=== PATIENT | male | born 1975 | race Caucasian/White ===

== ENCOUNTER 2017-07-17 21:20 | Observation (INO) | payer SELFPAY ==
[~2017-07-17] VITALS: Ht 188 cm; Wt 66.4 kg
[2017-07-17] MEDS: SODIUM CHLOR 0.9% 1000 ML INJ 1,000 ML IV SCH (18:33)
[2017-07-17] MEDS: SODIUM CHLORIDE 0.9% FLUSH 5 ML FLUSH IV FLUSH SCH (21:00)
[~2017-07-17 21:20] MED LIST: ACETAMINOPHEN 325 MG TAB PO PRN; ALPR0.5T3 PO; ASPI81TA23 PO; BISACODYL 10 MG SUPP RECTAL PRN; DEXTROSE 50% IN WATER 50 ML VIAL(D50) IV PUSH PRN; GABA600T PO; GADODIAMIDE PF 287 MG/ML 5 ML VIAL (for RAD MRI) IV PUSH ONE; GLUCAGON 1 MG/ML VIAL OTHER PRN; INSULIN ASPART SUPPLEMENTAL SCALE SQ SCH; LACTULOSE SYRUP 20 GM/30 ML CUP PO PRN; MAGNESIUM HYDROXIDE SUSP 30 ML CUP PO PRN; MORPHINE SULFATE 4 MG/ML INJ IV PUSH PRN; NALOXONE HCL 0.4 MG/ML AMP IV PUSH PRN; NICOTINE 14 MG/24 HR PATCH T-DERMAL ONE; NORC10TA2 PO; OMEP20CA2 PO; ONDANSETRON HCL 4 MG/2 ML VIAL IVP PRN; OXYC15TA PO; PRAV20 PO; PROCHLORPERAZINE 25 MG SUPP RECTAL PRN; PROT40TA PO; SENNOSIDES 8.6 MG TAB PO PRN; SODIUM CHLORIDE 0.9% FLUSH 10 ML FLUSH IV FLUSH PRN; SODIUM CHLORIDE 0.9% FLUSH 10 ML FLUSH IV FLUSH SCH; SODIUM CHLORIDE 0.9% FLUSH 5 ML FLUSH IV FLUSH PRN; SOMA350T PO; cloNIDine HCL 0.1 MG TAB PO PRN; oxyCODONE/ACETAMINOPHEN 10 MG/325 MG TAB PO PRN; oxyCODONE/ACETAMINOPHEN 5 MG/325 MG TAB PO PRN
[2017-07-17 21:31] VITALS: BP 113/69; PULSE 61; RESP 17; TEMP 97.8; O2SAT 98
[2017-07-17] MEDS ORDERED: NON-FORMULARY DRUG (Oxycodone 15 MG) PO PRN (22:00)
--- NOTE | 2017-07-17 22:07 | RADRPT ---
EXAM DATE/TIME: 07/17/2017 21:30 [place] COMPARISON: No previous studies available for comparison. INDICATIONS : Transient ischemic attack. MEDICAL HISTORY : Hypercholesterolemia. Herniated disc. Syncope. Arthritis. Anxiety. SURGICAL HISTORY : Angioplasty. Pacemaker. Left knee surgery. ENCOUNTER: Initial ACUITY: 1 day PAIN SCORE: 0/10 LOCATION: Bilateral neck PEAK SYSTOLIC VELOCITIES (cm/sec): ICA/CCA RATIO: Right: 1.0 Left: 0.9 ICA: Right: 87.5 Left: 83.8 CCA: Right: 89.7 Left: 94.6 ECA: Right: 67.7 Left: 86.2 VERTEBRAL: Right: 33.8 antegrade Left: 40.7 antegrade Elevated flow velocities and ICA/CCA ratios have been found to correlate with increased degrees of vessel stenosis, calculated as percentage of diameter relative to a normal segment of distal ICA/CCA FINDINGS: RIGHT CAROTID: No significant stenosis is visualized. The waveforms are within normal limits. LEFT CAROTID: No significant stenosis is visualized. The waveforms are within normal limits. VERTEBRAL ARTERIES: Antegrade flow is seen in both vertebral arteries. MISCELLANEOUS: None. CONCLUSION: 1. No atherosclerotic disease or stenosis is present within either internal carotid artery. 2. There is antegrade flow in both vertebral arteries. tSar Agrawal MD on July 17, 2017 at 22:05 Board Certified Radiologist. This report was verified electronically.
[2017-07-17] MEDS: ALPRAZolam 0.5 MG TAB PO SCH (22:50)
[2017-07-17] MEDS: ENOXAPARIN SODIUM 40 MG/0.4 ML SYRINGE SQ SCH (22:50)
[2017-07-17] MEDS: PANTOPRAZOLE SOD 20 MG DELAYED RELEASE TAB PO SCH (22:50)
[2017-07-17] MEDS: ATORVASTATIN 10 MG TAB PO SCH (22:50)
[2017-07-17] MEDS: DOCUSATE SODIUM 50 MG/SENNA 8.6 MG TAB PO SCH (22:50)
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
[2017-07-17 23:14] VITALS: BP 115/78; PULSE 67; RESP 17; TEMP 98; O2SAT 98
[2017-07-18] VITALS (9 sets, daily range): BP systolic 99–119; BP diastolic 56–83; PULSE 61–76; RESP 16–18; TEMP 97.7–98.7; O2SAT 95–99
[2017-07-18 04:39] LABS: CREATINE KINASE 68 U/L (39-308)
[2017-07-18] MEDS: SODIUM CHLOR 0.9% 1000 ML INJ 1,000 ML IV SCH ×3 (06:19→19:44)
[2017-07-18 07:32] LABS: AUTOMATED NEUTROPHIL # 0.8 TH/MM3 (1.8-7.7); BASOPHIL % 0.6 % (0.0-2.0); EOSINOPHIL # 0.2 TH/MM3 (0-0.4); EOSINOPHIL % 4.5 % (0.0-4.0); HEMATOCRIT 40.8 % (39.0-51.0); LYMPH % 66.1 % (9.0-44.0); LYMPHOCYTE # 2.3 TH/MM3 (1.0-4.8); MEAN CELL VOLUME 87.5 FL (80.0-100.0); MEAN CORPUSCULAR HEMOGLOBIN 29.4 PG (27.0-34.0); MEAN CORPUSCULAR HGB CONC 33.6 % (32.0-36.0); MONO % 6.7 % (0.0-8.0); NEUT % 22.1 % (16.0-70.0); PLATELET COUNT 222 TH/MM3 (150-450); RED BLOOD COUNT 4.66 MIL/MM3 (4.50-5.90); WHITE BLOOD COUNT 3.5 TH/MM3 (4.0-11.0)
[2017-07-18 07:35] LABS: HEMO FLAGS AUTO DIFF
[2017-07-18] MEDS: INSULIN ASPART SUPPLEMENTAL SCALE SQ SCH ×4 (08:00→20:12)
[2017-07-18 08:03] LABS: ANION GAP 6 MEQ/L (5-15); AST (GOT) 18 U/L (15-37); BICARBONATE 28.1 MEQ/L (21.0-32.0); BLOOD UREA NITROGEN 14 MG/DL (7-18); CHLORIDE 104 MEQ/L (98-107); GLOMERULAR FILTRATION RATE 120 ML/MIN (>89); MAGNESIUM 2.1 MG/DL (1.5-2.5); POTASSIUM 3.4 MEQ/L (3.5-5.1); SODIUM (NA) 138 MEQ/L (136-145)
[2017-07-18 08:04] LABS: ALT (GPT) 29 U/L (12-78)
[2017-07-18 08:12] LABS: ALKALINE PHOSPHATASE 77 U/L (45-117); FREE T4 0.92 NG/DL (0.76-1.46); HDL CHOLESTEROL 60.7 MG/DL (40.0-60.0); LDL CHOLESTEROL 76 MG/DL (0-99); TOTAL BILIRUBIN ADULT 0.5 MG/DL (0.2-1.0)
[2017-07-18 08:18] LABS: CREATINE KINASE 68 U/L (39-308)
[2017-07-18] MEDS ORDERED: POTASSIUM CHLORIDE 10 MEQ CONTROLLED RELEASE TAB PO ONE (08:30)
[2017-07-18] MEDS ORDERED: ASPIRIN EC 81 MG TABEC PO SCH (09:00)
[2017-07-18] MEDS: SODIUM CHLORIDE 0.9% FLUSH 5 ML FLUSH IV FLUSH SCH ×2 (09:00→20:13)
[2017-07-18] MEDS: PANTOPRAZOLE SOD 20 MG DELAYED RELEASE TAB PO SCH ×2 (10:06→22:04)
[2017-07-18] MEDS: ASPIRIN 325 MG TAB PO SCH (10:06)
[2017-07-18] MEDS: DOCUSATE SODIUM 50 MG/SENNA 8.6 MG TAB PO SCH ×2 (10:07→22:04)
[2017-07-18] MEDS: ALPRAZolam 0.5 MG TAB PO SCH ×2 (10:07→22:04)
[2017-07-18] MEDS ORDERED: GABA800T PO (10:56)
[2017-07-18] MEDS ORDERED: PRAV40TA2 PO (10:56)
[2017-07-18 11:59] LABS: BANDS 1 % (0-6); EOSINOPHILS 3 % (0-4); NEUTROPHIL # MANUAL DIFF 1.1 TH/MM3 (1.8-7.7); PLATELET ESTIMATE SMEAR NORMAL (NORMAL); PLATELET MORPHOLOGY NORMAL (NORMAL); POLYS (SEG NEUTROPHILS) 30 % (16-70); WBC DIFF SAMPLE 100
[2017-07-18 12:00] LABS: SCAN/DIFF FINAL DIFF MANUAL
--- NOTE | 2017-07-18 14:00 | HHI.PR ---
Subjective Remarks F/u TIA. Improving sxs. Per daughter still slurred speech. Patient has history of intermittent weakness of the right wrist history of neck bone spurs. Discussed with RN Objective Vitals Vital Signs Date Time Temp Pulse Resp B/P (MAP) Pulse Ox O2 Delivery O2 Flow Rate FiO2 07/18/17 11:51 98.5 70 16 113/78 (90) 97 07/18/17 08:01 62 07/18/17 07:01 97.7 66 16 114/83 (93) 99 07/18/17 02:45 97.7 62 16 99/60 (73) 98 07/17/17 23:21 18 07/17/17 23:14 98.0 67 17 115/78 (90) 98 07/17/17 21:31 97.8 61 17 113/69 (84) 98 I/O 07/17/17 07/17/17 07/17/17 07/18/17 07/18/17 07/18/17 07:00 15:00 23:00 07:00 15:00 23:00 Intake Total 300 ml 2000 ml Balance 300 ml 2000 ml Intake Oral 300 ml IV Total 2000 ml Result Diagram: 07/18/17 0548 07/18/17 0548 Imaging Last Impressions Carotid Artery Ultrasound 07/17/17 0000 Signed Impressions: Service Date/Time: Monday, July 17, 2017 21:30 - CONCLUSION: 1. No atherosclerotic disease or stenosis is present within either internal carotid artery. 2. There is antegrade flow in both vertebral arteries. Stra Agrawal MD Objective Remarks GENERAL: male in no distress SKIN: No rashes, ecchymoses or lesions. Cool and dry. NECK: Trachea midline. No JVD or lymphadenopathy. Supple, nontender, no meningeal signs. CARDIOVASCULAR: Regular rate and rhythm without murmurs, gallops, or rubs. RESPIRATORY: Clear to auscultation. Breath sounds equal bilaterally. No wheezes , rales, or rhonchi. GASTROINTESTINAL: Abdomen soft, non-tender, nondistended. No hepato-splenomegaly , or palpable masses. No guarding. MUSCULOSKELETAL: Extremities without clubbing, cyanosis, or edema. No joint tenderness, effusion, or edema noted. No calf tenderness. Negative Homans sign bilaterally. NEUROLOGICAL: Awake and alert. Cranial nerves II through XII intact. 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 5/5 strength in all extremities. A/P Problem List: (1) TIA (transient ischemic attack) ICD Code: G45.9 - Transient cerebral ischemic attack, unspecified Status: Acute Assessment and Plan 42-year-old male with pacemaker implantation for symptomatic bradycardia presents with right-sided facial droop and right upper extremity weakness. 1. TIA versus CVA. Stable continue aspirin Neurology consulted, appreciate assistance LDL 72, A1c pending Echo, MRI and MRA pending. Carotid ultrasound negative MRA/MRI held secondary to pacemaker 2. Symptomatic bradycardia 3. Right apical density. Patient denies respiratory symptoms. Repeat chest x- ray in 6 weeks. Incentive spirometer albuterol nebulizations FEN Heart healthy diet Electrolytes: replete prn Susan Jack MD Jul 17, 2017 23:01 Souleymane Burns MD Jul 18, 2017 14:00
[2017-07-18 15:33] LABS: FREE T3 3.2 PG/ML (2.18-3.98); FREE T4 0.96 NG/DL (0.76-1.46)
[2017-07-18 16:23] LABS: HEMOGLOBIN A1a 1.3 %; HEMOGLOBIN A1b 1.8 %; HEMOGLOBIN Ao 85.1 %; HEMOGLOBIN LA1C 1.9 %; HEMOGLOBIN P3 3.6 %
--- NOTE | 2017-07-18 19:26 | EKG ---
Date Performed: 07/17/2017 Time Performed: 23:11:14 PTAGE: 42 years EKG: ELECTRONIC ATRIAL PACEMAKER ABNORMAL RHYTHM ECG Since PREVIOUS TRACING , no significant change noted PREVIOUS TRACIN06/30/2016 02.57 DOCTOR: Delia Pulliam Interpretating Date/Time 07/18/2017 19:25:24
[2017-07-18] MEDS: RESP: ALBUTEROL 2.5 MG/IPRATROPIUM 0.5 MG NEB (SCH) NEB (20:00)
[2017-07-18] MEDS ORDERED: GABAPENTIN 400 MG CAP PO ONE (22:00)
[2017-07-18] MEDS: ENOXAPARIN SODIUM 40 MG/0.4 ML SYRINGE SQ SCH (22:04)
[2017-07-18] MEDS: ATORVASTATIN 10 MG TAB PO SCH (22:05)
[2017-07-19] VITALS (10 sets, daily range): BP systolic 99–115; BP diastolic 57–77; PULSE 60–78; RESP 16–19; TEMP 97.6–98.5; O2SAT 94–100
--- NOTE | 2017-07-19 06:35 | MB ---
cc: HEATHER MORA DATE OF CONSULTATION 07/18/2017 REASON FOR CONSULTATION "TIA/myasthenia gravis". HISTORY OF PRESENT ILLNESS Mr. Alegre is a 42-year-old male with his daughter at the bedside. They presented to the [facility] Emergency Department because of right-sided facial droop, slurred speech and right-sided hand weakness. The daughter describes clearly the right-sided droopiness of the right side of the face, hand was very weak and he was disoriented with slurred speech and he states that he could not see from his right eye; this lasted overnight. During the encounter this morning the patient and his daughter state that he is almost back to normal but the daughter still thinks that there is mild droopiness of the right eyelid. The patient has a past medical history of bradycardia status post pacemaker. He is left-handed. Pacemaker is on the right upper chest. The patient has been in [facility] in [place] for evaluation of a significant weight loss of 50-60 pounds over 2 months duration with severe vomiting and lack of appetite. The patient has family history of myasthenia gravis in his father. His daughter was diagnosed with neuroblastoma in the chest with right Martinez's syndrome due to surgical intersection and the patient's daughter was diagnosed with postganglionic dysautonomia and he was diagnosed with a "neck spur" in [place] that may be affecting him. In fact they told him it is affecting his right hand weakness. REVIEW OF SYSTEMS A 12-point review of systems is negative except for what is stated in the HPI. PAST MEDICAL HISTORY Multiple herniated disks in the back and the neck. Bradycardia with pacemaker implantation July 2016. PAST SURGICAL HISTORY 1. Left knee twice. 2. Pacemaker plantation replacement. MEDICATIONS 1. Alprazolam. 2. Soma. 3. Omeprazole. 4. Aspirin 81. 5. Oxycodone. ALLERGIES No known allergies. FAMILY HISTORY Father with myasthenia gravis. Daughter with postganglionic dysautonomia. Daughter with neuroblastoma. SOCIAL HISTORY Smokes one-pack per day for 20 years. Denies alcohol or illicit drugs. PHYSICAL EXAMINATION GENERAL: Awake. Good historian. Anxious. Not in acute distress with daughter at the bedside. HEENT: Atraumatic, normocephalic. Intact hearing and intact vision. NECK: Supple. No signs of meningeal irritation. CARDIOVASCULAR: Regular rate and rhythm. Pacemaker on the right upper chest. RESPIRATORY: Clear to auscultation. No wheezes. MUSCULOSKELETAL: No clubbing, cyanosis or edema. Moves all extremities equally. NEUROLOGIC: Awake, alert, oriented to time, person and place. No dysarthria. No dysphasia. Cranial nerves II-XII are grossly intact. No facial asymmetry. Intact facial sensation. Intact external ocular motility. No nystagmus. No diplopia. Upper extremities 5/5, bilateral, symmetrical, no abnormal movement. Normal tone. Lower extremities 5/5. No abnormal movement. Normal tone. Sensation is intact throughout, bilateral and symmetrical. Tsmrei-hu-pgit and heel-to- nava is intact. Plantars are bilaterally downgoing. PSYCHIATRY: Cooperative. Normal mood and behavior. DIAGNOSTIC TESTS LABORATORY DATA WBC 3.5, hemoglobin 13.7, platelet count 222. Sodium 138, potassium 3.4, anion gap 6, BUN 14, creatinine 0.72. A1c 5.8. Free T4 and TSH is low. IMAGING STUDIES - Head CT scan without contrast was reported as no evidence of acute intracranial abnormality. - Carotid ultrasound - No atherosclerotic disease in either internal carotid artery. Antegrade flow in both vertebral arteries. DIAGNOSTIC IMPRESSION -TIA versus ischemic stroke. - Bradycardia status post pacemaker . PLAN 1. Neuro checks q. 4 hours. 2. Aspirin 81 mg. 3. MRI brain without contrast. 4. MRI spine with and without contrast. 5. Statin 10 mg daily. 6. DVT prophylaxis. 7. GI prophylaxis. Thank you for the opportunity to participate in the care of your patient. MD TENZIN Venegas/REENA /9:28 PM /6:28 AM MIN
[2017-07-19] MEDS: RESP: ALBUTEROL 2.5 MG/IPRATROPIUM 0.5 MG NEB (SCH) NEB ×4 (07:24→22:44)
[2017-07-19] MEDS: INSULIN ASPART SUPPLEMENTAL SCALE SQ SCH ×4 (08:00→20:53)
[2017-07-19] MEDS: SODIUM CHLORIDE 0.9% FLUSH 5 ML FLUSH IV FLUSH SCH ×2 (08:00→21:00)
[2017-07-19] MEDS: ALPRAZolam 0.5 MG TAB PO SCH ×2 (08:02→20:44)
[2017-07-19] MEDS: ASPIRIN 325 MG TAB PO SCH (08:02)
[2017-07-19] MEDS: GABAPENTIN 400 MG CAP PO SCH ×3 (08:03→17:08)
[2017-07-19] MEDS: DOCUSATE SODIUM 50 MG/SENNA 8.6 MG TAB PO SCH ×2 (08:04→21:53)
[2017-07-19] MEDS: PANTOPRAZOLE SOD 20 MG DELAYED RELEASE TAB PO SCH ×2 (08:04→21:53)
--- NOTE | 2017-07-19 12:01 | ECHRPT ---
Indication: CVA/TIA CONCLUSIONS Normal left ventricular size. Wall thickness is normal. The left ventricular systolic function is moderately reduced with an estimated ejection fraction in the range of 35-40%. The estimated pulmonary arterial pressure is 31 mmHg. BP: / HR: Rhythm: MEASUREMENTS (Male / Female) Normal Values Technical Quality:Fair 2D ECHO LV Diastolic Diameter PLAX 4.8 cm 4.2 - 5.9 / 3.9 - 5.3 cm LV Systolic Diameter PLAX 4.0 cm IVS Diastolic Thickness 1.0 cm 0.6 - 1.0 / 0.6 - 0.9 cm LVPW Diastolic Thickness 0.6 cm 0.6 - 1.0 / 0.6 - 0.9 cm LV Relative Wall Thickness 0.3 RV Internal Dim ED PLAX 2.8 cm LA Systolic Diameter LX 3.6 cm 3.0 - 4.0 / 2.7 - 3.8 cm DOPPLER Mitral E Point Velocity 80.0 cm/s Mitral A Point Velocity 46.9 cm/s Mitral E to A Ratio 1.7 TR Peak Velocity 231.0 cm/s TR Peak Gradient 21.3 mmHg Right Atrial Pressure 10.0 mmHg Pulmonary Artery Systolic Pressu 31.3 mmHg Right Ventricular Systolic Press 31.3 mmHg FINDINGS LEFT VENTRICLE Normal left ventricular size. Wall thickness is normal. The left ventricular systolic function is moderately reduced with an estimated ejection fraction in the range of 35-40%. RIGHT VENTRICLE Normal right ventricular size and systolic function. A pacemaker wire is noted. LEFT ATRIUM The left atrial size is normal. RIGHT ATRIUM The right atrial size is normal. ATRIAL SEPTUM Normal atrial septal thickness without atrial level shunting by limited color doppler interrogation. AORTA The aortic root and proximal ascending aorta are normal in size on limited imaging. MITRAL VALVE Structurally normal mitral valve. No mitral valve stenosis or regurgitation. AORTIC VALVE Trileaflet aortic valve. No aortic valve stenosis or regurgitation. TRICUSPID VALVE The estimated pulmonary arterial pressure is 31 mmHg. PULMONARY VALVE No pulmonary valve regurgitation or stenosis. VESSELS The inferior vena cava is normal in size. PERICARDIUM No pericardial effusion. Wendi Portillo MD, FACC (Electronically Signed) Final Date:19 July 2017 12:00
[2017-07-19 13:00] LABS: AUTOMATED NEUTROPHIL # 1.5 TH/MM3 (1.8-7.7); BASOPHIL % 0.5 % (0.0-2.0); EOSINOPHIL # 0.1 TH/MM3 (0-0.4); EOSINOPHIL % 2.4 % (0.0-4.0); HEMATOCRIT 35.4 % (39.0-51.0); HEMO FLAGS DIFF FINAL; LYMPH % 54.8 % (9.0-44.0); LYMPHOCYTE # 2.2 TH/MM3 (1.0-4.8); MEAN CELL VOLUME 88.2 FL (80.0-100.0); MEAN CORPUSCULAR HEMOGLOBIN 29.4 PG (27.0-34.0); MEAN CORPUSCULAR HGB CONC 33.4 % (32.0-36.0); MONO % 4.6 % (0.0-8.0); NEUT % 37.7 % (16.0-70.0); PLATELET COUNT 214 TH/MM3 (150-450); RED BLOOD COUNT 4.01 MIL/MM3 (4.50-5.90)
[2017-07-19] MEDS ORDERED: PRAV40TA2 PO (13:09)
--- NOTE | 2017-07-19 13:21 | HHI.DCPOC ---
Discharge Care Plan Diagnosis: (1) TIA (transient ischemic attack) (2) Bradycardia (3) Tobacco abuse (4) Apical lung scarring (5) Systolic CHF Goals to Promote Your Health * To prevent worsening of your condition and complications * To maintain your health at the optimal level Directions to Meet Your Goals Please quit smoking Finding of right apical density on chest xray, please repeat CXR in 6 weeks. No driving until follow up with PCP Take your medications as prescribed Follow your dietary instruction Follow activity as directed Keep your appointments as scheduled Take your immunizations and boosters as scheduled If your symptoms worsen call your PCP, if no PCP go to Urgent Care Center or Emergency Room Smoking is Dangerous to Your Health. Avoid second hand smoke Call the 24-hour hour crisis hotline for domestic abuse at Akiko Ramesh Jul 19, 2017 13:21
[2017-07-19 13:26] LABS: BICARBONATE 24.6 MEQ/L (21.0-32.0); POTASSIUM 3.6 MEQ/L (3.5-5.1)
[2017-07-19] MEDS ORDERED: LISI-519 PO (13:54)
[2017-07-19] MEDS ORDERED: PILL SPLITTER OTHER PRN (14:00)
--- NOTE | 2017-07-19 14:01 | HHI.PR ---
Subjective Remarks Follow-up TIA. Improved numbness and weakness. Awaiting MRI pending cardiology clearance patient has a pacemaker. Discussed with RN Objective Vitals Vital Signs Date Time Temp Pulse Resp B/P (MAP) Pulse Ox O2 Delivery O2 Flow Rate FiO2 07/19/17 12:23 98.5 62 18 102/57 (72) 99 07/19/17 07:27 94 21 07/19/17 07:04 98.0 60 16 99/69 (79) 98 07/19/17 06:23 21 07/19/17 06:12 62 07/19/17 03:38 97.6 60 19 107/61 (76) 97 07/18/17 23:33 97.9 65 18 111/56 (74) 98 07/18/17 21:14 98.7 76 18 117/64 (81) 95 07/18/17 15:31 98.3 61 16 119/81 (94) 99 07/18/17 15:30 71 I/O 07/18/17 07/18/17 07/18/17 07/19/17 07/19/17 07/19/17 07:00 15:00 23:00 07:00 15:00 23:00 Intake Total 2000 ml 1000 ml Balance 2000 ml 1000 ml IV Total 2000 ml 1000 ml # Voids 6 # Bowel Movements 1 Result Diagram: 07/19/17 1205 07/19/17 1205 Imaging Last Impressions Carotid Artery Ultrasound 07/17/17 0000 Signed Impressions: Service Date/Time: Monday, July 17, 2017 21:30 - CONCLUSION: 1. No atherosclerotic disease or stenosis is present within either internal carotid artery. 2. There is antegrade flow in both vertebral arteries. Star Agrawal MD Objective Remarks GENERAL: male in no distress SKIN: No rashes, ecchymoses or lesions. Cool and dry. NECK: Trachea midline. No JVD or lymphadenopathy. Supple, nontender, no meningeal signs. CARDIOVASCULAR: Regular rate and rhythm without murmurs, gallops, or rubs. RESPIRATORY: Clear to auscultation. Breath sounds equal bilaterally. No wheezes , rales, or rhonchi. GASTROINTESTINAL: Abdomen soft, non-tender, nondistended. No hepato-splenomegaly , or palpable masses. No guarding. MUSCULOSKELETAL: Extremities without clubbing, cyanosis, or edema. No joint tenderness, effusion, or edema noted. No calf tenderness. Negative Homans sign bilaterally. NEUROLOGICAL: Awake and alert. Cranial nerves II through XII intact.. Motor grossly within normal limits Procedures None A/P Problem List: (1) TIA (transient ischemic attack) ICD Code: G45.9 - Transient cerebral ischemic attack, unspecified Status: Acute Assessment and Plan 42-year-old male with pacemaker implantation for symptomatic bradycardia presents with right-sided facial droop and right upper extremity weakness. 1. TIA versus CVA. Stable with improved symptoms continue aspirin Neurology consulted, appreciate assistance LDL 72, A1c 5.3 MRI and MRA pending awaiting cardiology clearance patient has a pacemaker. Carotid ultrasound negative 2. Symptomatic bradycardia was most pacemaker 3. Cardiomyopathy. EF of 35%. Stress test negative for ischemia and June 2016. Start lisinopril. Will consider beta mesha outpatient if BP stable 4. History of weight loss. Patient to follow-up with PCP. Status post EGD and colonoscopy results not known to the patient. Patient with decreased TSH but not suppressed with normal free T3 and free T4. Possible sick euthyroid. Repeat TSH in 6 weeks 5. Right apical density. Patient denies respiratory symptoms. Repeat chest x- ray in 6 weeks. Incentive spirometer albuterol nebulizations FEN Heart healthy diet Electrolytes: replete prn Lovenox Discharge Planning Discharge patient to home Condition on discharge: Improved Regular Diet as tolerated Ad Akila activity no driving Rx written: Aspirin and lisinopril Follow-up with primary care physician in one week Souleymane Burns MD Jul 19, 2017 14:01
[2017-07-19] MEDS ORDERED: ASPI-516 CHEW (14:40)
[2017-07-19] MEDS ORDERED: hydrOXYzine PAMOATE 25 MG CAP PO PRN (15:30)
[2017-07-19] MEDS: LISINOPRIL 5 MG TAB PO SCH (15:47)
[2017-07-19] MEDS: SODIUM CHLOR 0.9% 1000 ML INJ 1,000 ML IV SCH ×2 (16:15→20:44)
--- NOTE | 2017-07-19 17:49 | MB ---
cc: MARIA A RAMIREZ DATE OF CONSULTATION: 07/19/2017 REASON FOR CONSULTATION: Clearance for MRI; history of pacemaker implant. HISTORY OF PRESENT ILLNESS The patient is a 42-year-old white male with a history of pacemaker implant July 2016 in [place], [place], for symptomatic bradycardia who presented to the hospital with neurological changes including right visual disturbances, right facial droop and some slurred speech. Most of these deficits have since resolved. He is to undergo MRI for further workup. The patient denies any recent chest pains although he states in the past he rarely has episodes of substernal chest "pressure" without associated shortness of breath, nausea or diaphoresis. Sometimes the chest discomforts last in a constant fashion for several hours. He reports a nuclear stress test sometime last year which was negative for ischemia. The patient also experiences mild dyspnea on exertion without change. He denies syncope, near-syncope, palpitations, pedal edema, paroxysmal nocturnal dyspnea. PAST MEDICAL HISTORY: Pacemaker implant ([employer]tronic) July 2016 for symptomatic bradycardia. CARDIAC MEDICATIONS AT HOME: Aspirin 81 milligrams qd. ALLERGIES: NO KNOWN DRUG ALLERGIES. FAMILY HISTORY: The patient's father has myasthenia gravis. There is no family history of early myocardial infarction. SOCIAL HISTORY: The patient smokes about a pack of cigarettes per day. He denies drug or alcohol abuse. REVIEW OF SYSTEMS: As in the history of present illness, otherwise negative or noncontributory. He also denies abdominal pain, melena, dyspepsia, bright red blood per rectum, headache. PHYSICAL EXAMINATION: On physical examination his blood pressure is 115/77 with a pulse of 63, respirations 16. GENERAL: He is a well-developed, well-nourished white male in no acute distress. HEENT examination: Jugular venous pressure is normal. Carotid pulses are 2+ bilaterally and without bruits. CHEST: Examination of the chest reveals clear lung toth. CARDIAC: He has a regular rhythm and rate without S3-S4 or murmur. ABDOMEN: On abdominal examination he has a soft, nontender abdomen. Bowel sounds are present. There is no definite hepatosplenomegaly. EXTREMITIES: Examination of extremities reveals no clubbing, cyanosis or edema. Peripheral pulses are normal throughout. EKG shows atrial paced rhythm, otherwise normal EKG. LABORATORY DATA: Laboratory data includes WBC 4.0, hemoglobin 11.8, platelets 214, potassium 3.6, BUN 12, creatinine 0.72, negative cardiac enzymes, total cholesterol 153, LDL 76, HDL 61, triglycerides 83. IMPRESSION Nondilated cardiomyopathy in this 42-year-old white male with a history of pacemaker implant last year currently admitted with acute neurological changes. I have been asked to see the patient for clearance for MRI of the head. The [employer]tr[employer] interrogation information has been reviewed. It does appear he has an MRI compatible device. He has also had the device for more than 8 weeks. Pacemaker function by the interrogation appears to be normal. His echocardiogram this admission has also been reviewed. I would agree that his left ventricular function is reduced with ejection fraction of approximately 40% with global hypokinesis. The etiology of the cardiomyopathy is not entirely clear. The patient reports a negative stress test last year. He denies drug or alcohol abuse. There is no definite history of hypertension. The hypokinesis on the echo appears to be global. RECOMMENDATIONS 1. He is cleared from a cardiac standpoint to undergo MRI of the head tonight. 2. In light of his reduced ejection fraction of 40% recommend a beta mesha and SARI inhibitor therapy with a repeat echo in about 3-4 months. 3. Continue daily aspirin. 4. Will follow up as needed. MD CLARISSE Daniels/KARLA /5:25 PM /5:38 PM MIN
--- NOTE | 2017-07-19 19:53 | RADRPT ---
EXAM DATE/TIME: 07/19/2017 18:26 [facility] COMPARISON: No previous studies available for comparison. INDICATIONS : CVA. MEDICAL HISTORY : Hypercholesterolemia. Arthritis. Cardiovascular disease. SURGICAL HISTORY : Pacemaker. Left knee. ENCOUNTER: Subsequent ACUITY: 3 day PAIN SCORE: 3/10 LOCATION: cranial TECHNIQUE: Multiplanar, multisequence MRI of the brain was performed without contrast. FINDINGS: CEREBRUM: The ventricles are normal for age. No evidence of midline shift, mass lesion, hemorrhage or acute in farction. No extraaxial fluid collections are seen. The pituitary gland and suprasellar cistern are normal in configuration. There is a small patent cavum septum pellucidum which is a normal pattern. WHITE MATTER: No significant signal abnormalities are seen in the white matter. POSTERIOR FOSSA: The cerebellum and brainstem are intact. The 4th ventricle is midline. The cerebellopontine angle is unremarkable. The cerebellar tonsils are normal in position. DIFFUSION IMAGING: No focal areas of restricted diffusion are seen. No evidence of acute infarction. EXTRACRANIAL: The visualized portions of the orbits are unremarkable. There is left frontal and ethmoid sinus disea se. CONCLUSION: 1. No intracranial abnormality seen. 2. Mild left frontal and ethmoid sinus disease. Star Ayoub MD on July 19, 2017 at 19:49 Board Certified Radiologist. This report was verified electronically.
--- NOTE | 2017-07-19 20:45 | RADRPT ---
EXAM DATE/TIME: 07/19/2017 18:26 [facility] COMPARISON: No previous studies available for comparison. INDICATIONS : Myelopathy. CONTRAST: 13 cc Omniscan (gadodiamide) IV MEDICAL HISTORY : Hypercholesterolemia. Arthritis. Cardiovascular disease. SURGICAL HISTORY : Pacemaker. Left knee. ENCOUNTER: Subsequent ACUITY: 3 day PAIN SCORE: 3/10 LOCATION: Neck TECHNIQUE: Multiplanar, multisequence MRI examination of the cervical spine was performed. FINDINGS: VERTEBRAE: Normal vertebral body height. Homogeneous marrow signal. ALIGNMENT: There is mild anterior subluxation of C3 on C4 in the order of 3 mm and posterior subl uxation of C4 on C5 in the order of 3 mm. CORD: Normal configuration and signal. POST FOSSA: The cerebellar tonsils are normal in position. POST-CONTRAST: No abnormal areas of enhancement are seen. C2-C3: The thecal sac has a normal configuration. There is no evidence of disc herniation or spinal canal stenosis. The neural foramina are patent bilaterally. C3-C4: Again noted is the anterior subluxation of C3 on C4. There is facet hypertrophy. The disc d emonstrates decreased height. The disc maintains its normal relationship with the superior aspect of C4 creating a bulge like configuration. There is moderate narrowing of the thecal sac. There is a jeff y thin layer of CSF seen around the cord. The neural foramina are grossly patent. C4-C5: Disc demonstrates height. There is mild bulging. There is mild to moderate narrowing of the t hecal sac. The neural foramina are normal. C5-C6: There is a minimal left lateral recess disc protrusion without significant stenosis. The neur al foramina are normal. C6-C7: There is mild diffuse disc bulge. This causes a mild impression on the thecal sac. There cont inues to be CSF around the cord. There is uncovertebral hypertrophy on the left causing left neural foraminal narrowing. The right neural foramina appears grossly patent. C7-T1: The thecal sac has a normal configuration. There is no evidence of disc herniation or spinal canal stenosis. The neural foramina are patent bilaterally. CONCLUSION: 1. 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 2. Anterior subluxation of C3 on C4 and posterior subluxation of C4 on C5 in the order of 3 mm. 3. Moderate narrowing of the thecal sac at the C3-C4 level. There are milder impressions on the thec al sac at the C4-C5 and C6-C7 levels. 4. Minimal left disc protrusion at the C5-C6 level without significant stenosis. Star Ayoub MD on July 19, 2017 at 19:51 Board Certified Radiologist. This report was verified electronically.
[2017-07-19] MEDS: ATORVASTATIN 10 MG TAB PO SCH (21:53)
[2017-07-19] MEDS: METOPROLOL TARTRATE 25 MG TAB PO SCH (21:53)
[2017-07-19] MEDS: ENOXAPARIN SODIUM 40 MG/0.4 ML SYRINGE SQ SCH (21:53)
[2017-07-20] VITALS (7 sets, daily range): BP systolic 99–108; BP diastolic 57–66; PULSE 60–79; RESP 16–19; TEMP 98–98.2; O2SAT 97–100
[2017-07-20] MEDS: SODIUM CHLOR 0.9% 1000 ML INJ 1,000 ML IV SCH (06:33)
[2017-07-20] MEDS: RESP: ALBUTEROL 2.5 MG/IPRATROPIUM 0.5 MG NEB (SCH) NEB ×2 (07:35→12:57)
[2017-07-20] MEDS: INSULIN ASPART SUPPLEMENTAL SCALE SQ SCH ×2 (07:49→11:18)
[2017-07-20] MEDS ORDERED: METO25TA3 PO (08:23)
[2017-07-20] MEDS: LISINOPRIL 5 MG TAB PO SCH (08:37)
[2017-07-20] MEDS: ALPRAZolam 0.5 MG TAB PO SCH (08:44)
[2017-07-20] MEDS: METOPROLOL TARTRATE 25 MG TAB PO SCH (08:44)
[2017-07-20] MEDS: DOCUSATE SODIUM 50 MG/SENNA 8.6 MG TAB PO SCH (08:44)
[2017-07-20] MEDS: PANTOPRAZOLE SOD 20 MG DELAYED RELEASE TAB PO SCH (08:44)
[2017-07-20] MEDS: GABAPENTIN 400 MG CAP PO SCH ×2 (08:44→12:51)
[2017-07-20] MEDS: ASPIRIN 325 MG TAB PO SCH (08:44)
[2017-07-20] MEDS: SODIUM CHLORIDE 0.9% FLUSH 5 ML FLUSH IV FLUSH SCH (08:48)
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
== END 2017-07-20 14:47 | disposition home or self-care (01) ==
LOC: NEDDLT 21:20 → NEPGCP 21:23
PROVIDERS: ADMIT Internal Medicine; ATTEND Internal Medicine
DX: R29.810 Facial weakness (principal); M21.339 Wrist drop, unspecified wrist; I42.9 Cardiomyopathy, unspecified; R00.1 Bradycardia, unspecified; M77.9 Enthesopathy, unspecified; F17.210 Nicotine dependence, cigarettes, uncomplicated; R47.81 Slurred speech; R63.4 Abnormal weight loss; R11.10 Vomiting, unspecified; Z95.0 Presence of cardiac pacemaker; D64.9 Anemia, unspecified; E87.6 Hypokalemia; R79.1 Abnormal coagulation profile; E83.51 Hypocalcemia; E87.8 Other disorders of electrolyte and fluid balance, not elsewhere classified; J98.4 Other disorders of lung; R09.89 Other specified symptoms and signs involving the circulatory and respiratory systems; R73.09 Other abnormal glucose; Z79.899 Other long term (current) drug therapy
CPT/HCPCS: 70450; 70551; 71010; 72156; 80048; 80053; 80061; 80307; 82550; 82948; 83036; 83735; 84100; 84439; 84443; 84481; 84484; 85007; 85025; 85027; 85610; 85730; 92610; 93005; 93306; 93880; 94150; 94640; 94664; 96360; 96361; 96372; 97161; 97166; 97530; 99285; A9579; G0378; G8987; G8988; G8989; G8996; G8997; G8998; J1650; J7030; Q0177; 99281

== ENCOUNTER 2018-02-15 17:48 | Observation (INO) | payer OTHER ==
[~2018-02-15] VITALS: Ht 188 cm; Wt 70.0 kg
[~2018-02-15 17:48] MED LIST changes: -ACETAMINOPHEN 325 MG TAB PO PRN; +ASPI-516 CHEW; -ASPI81TA23 PO; -BISACODYL 10 MG SUPP RECTAL PRN; -DEXTROSE 50% IN WATER 50 ML VIAL(D50) IV PUSH PRN; -GABA600T PO; +GABA800T PO; -GADODIAMIDE PF 287 MG/ML 5 ML VIAL (for RAD MRI) IV PUSH ONE; -GLUCAGON 1 MG/ML VIAL OTHER PRN; -INSULIN ASPART SUPPLEMENTAL SCALE SQ SCH; -LACTULOSE SYRUP 20 GM/30 ML CUP PO PRN; +LISI-519 PO; -MAGNESIUM HYDROXIDE SUSP 30 ML CUP PO PRN; +METO25TA3 PO; -MORPHINE SULFATE 4 MG/ML INJ IV PUSH PRN; -NALOXONE HCL 0.4 MG/ML AMP IV PUSH PRN; -NICOTINE 14 MG/24 HR PATCH T-DERMAL ONE; -NORC10TA2 PO; -ONDANSETRON HCL 4 MG/2 ML VIAL IVP PRN; -PRAV20 PO; +PRAV40TA2 PO; -PROCHLORPERAZINE 25 MG SUPP RECTAL PRN; -PROT40TA PO; -SENNOSIDES 8.6 MG TAB PO PRN; -SODIUM CHLORIDE 0.9% FLUSH 10 ML FLUSH IV FLUSH PRN; -SODIUM CHLORIDE 0.9% FLUSH 10 ML FLUSH IV FLUSH SCH; -SODIUM CHLORIDE 0.9% FLUSH 5 ML FLUSH IV FLUSH PRN; -cloNIDine HCL 0.1 MG TAB PO PRN; -oxyCODONE/ACETAMINOPHEN 10 MG/325 MG TAB PO PRN; -oxyCODONE/ACETAMINOPHEN 5 MG/325 MG TAB PO PRN
[2018-02-15 17:51] VITALS: BP 144/100; PULSE 61; RESP 20; TEMP 97.8; O2SAT 100
[2018-02-15] MEDS ORDERED: SODIUM CHLOR 0.9% 1000 ML INJ 1,000 ML IV ONE ×2 (18:10→19:45)
[2018-02-15] MEDS ORDERED: GABA100C4 PO (18:13)
[2018-02-15] MEDS ORDERED: PROMETHAZINE INJ 25 MG/ML VIAL IM ONE (18:15)
[2018-02-15] MEDS ORDERED: MORPHINE SULFATE 4 MG/ML INJ IV PUSH ONE ×2 (18:15→22:30)
[2018-02-15] MEDS ORDERED: SODIUM CHLORIDE 0.9% FLUSH 10 ML FLUSH IVF PRN (18:15)
--- NOTE | 2018-02-15 18:24 | PD ---
HPI Chief Complaint: Chest Pain Time Seen by Provider: 18:13 Travel History International Travel<30 days: No Contact w/Intl Traveler<30days: No Traveled to known affect area: No History of Present Illness HPI Patient is a 42-year-old male presenting to the emergency depart for evaluation of abdominal pain, nausea, vomiting, back pain and chest pain. Patient presented actively vomiting. is at bedside and states patient was fatigued yesterday, today he started with the vomiting. Patient states his back pain is a 10 out of 10, is in his mid back, constant. He reports abdominal cramping. He also reported chest pain which is midsternal, there is no radiation of this pain. Patient reports a history of kidney stones, CHF, acute GA, CVA, pacemaker defibrillator. Symptom onset was fairly sudden, symptoms are severe in nature. There are no alleviating factors. Patient is unable to hold on any food or fluids. He reports chills but denies any documented fevers. Patient denies any illicit drug use. PFSH Past Medical History Hx Anticoagulant Therapy: Yes (Aspirin daily) Arthritis: Yes Cardiac Catheterization: Yes High Cholesterol: Yes Chest Pain: Yes Congestive Heart Failure: Yes Cerebrovascular Accident: Yes (TIA) Hypertension: Yes Musculoskeletal: Yes (neck disck spurs, and bone spurs) Neurologic: Yes Myocardial Infarction: Yes Radiation Therapy: No Sleep Apnea: No Thyroid Disease: No Tetanus Vaccination: < 5 Years Influenza Vaccination: Yes Past Surgical History AICD: Yes Cardiac Surgery: Yes (ANGIOPLASTY) Coronary Stent: Yes Pacemaker: Yes Family History Family Myocardial Infarction: Yes Social History Alcohol Use: No Tobacco Use: Yes (1/2 - 1 PPD) Substance Use: Yes (Marijuana) Allergies-Medications (Allergen,Severity, Reaction): Coded Allergies: No Known Allergies (Unverified Allergy, Unknown, 02/15/18) Reported Meds & Prescriptions Reported Meds & Active Scripts Active Metoprolol Tartrate 25 Mg Tab 12.5 Mg PO Q12HR 30 Days Aspirin 81 Mg Chew 162 Mg CHEW DAILY Pravastatin 40 Mg Tab 40 Mg PO DAILY 30 Days Reported Gabapentin 100 Mg Cap 100 Mg PO TID Gabapentin 800 Mg Tab 800 Mg PO TID Soma (Carisoprodol) 350 Mg Tab 350 Mg PO BID Omeprazole 20 Mg Cap 1 Tab PO BID Oxycodone (Oxycodone HCl) 15 Mg Tab 15 Mg PO Q4H PRN Review of Systems Except as stated in HPI: all other systems reviewed are Neg General / Constitutional: Positive: Chills, No: Fever HENT: No: Headaches Cardiovascular: Positive: Chest Pain or Discomfort, Tachycardia Respiratory: No: Shortness of Breath Gastrointestinal: Positive: Nausea, Vomiting, Abdominal Pain Musculoskeletal: Positive: Pain (Back pain) Neurologic: Positive: Weakness Physical Exam Narrative GENERAL: Thin, well-developed, alert male. Appears uncomfortable, no acute distress. SKIN: Warm and dry. HEAD: Atraumatic. Normocephalic. EYES: Pupils equal and round. No scleral icterus. No injection or drainage. ENT: No nasal bleeding or discharge. Mucous membranes pink and moist. NECK: Trachea midline. No JVD. CARDIOVASCULAR: Regular rate and rhythm. RESPIRATORY: No accessory muscle use. Clear to auscultation. Breath sounds equal bilaterally. GASTROINTESTINAL: Abdomen soft, mildly tender diffusely, nondistended. Hepatic and splenic margins not palpable. Positive guarding, no rebound MUSCULOSKELETAL: Extremities without clubbing, cyanosis, or edema. No obvious deformities. Positive CVAT bilaterally NEUROLOGICAL: Awake and alert. No obvious cranial nerve deficits. Motor grossly within normal limits. Five out of 5 muscle strength in the arms and legs. Normal speech. PSYCHIATRIC: Appropriate mood and affect; insight and judgment normal. Data Data Last Documented VS Vital Signs Date Time Temp Pulse Resp B/P (MAP) Pulse Ox O2 Delivery O2 Flow Rate FiO2 02/15/18 18:42 60 15 145/98 (114) 99 Room Air 02/15/18 17:51 97.8 Orders Orders Electrocardiogram (02/15/18 18:10) Ckmb (Isoenzyme) Profile (02/15/18 18:10) Complete Blood Count With Diff (02/15/18 18:10) Comprehensive Metabolic Panel (02/15/18 18:10) D-Dimer (02/15/18 18:10) Magnesium (Mg) (02/15/18 18:10) Prothrombin Time / Inr (Pt) (02/15/18 18:10) Act Partial Throm Time (Ptt) (02/15/18 18:10) Troponin I (02/15/18 18:10) Lipase (02/15/18 18:10) Chest, Single Ap (02/15/18 18:10) Ecg Monitoring (02/15/18 18:10) Bilateral Bp Monitoring (02/15/18 18:10) Iv Access Insert/Monitor (02/15/18 18:10) Oximetry (02/15/18 18:10) Oxygen Administration (02/15/18 18:10) Sodium Chloride 0.9% Flush (Ns Flush) (02/15/18 18:15) Urinalysis - C+S If Indicated (02/15/18 18:10) Sodium Chlor 0.9% 1000 Ml Inj (Ns 1000 M (02/15/18 18:10) Promethazine Inj (Phenergan Inj) (02/15/18 18:15) Morphine Inj (Morphine Inj) (02/15/18 18:15) Metoclopramide Inj (Reglan Inj) (02/15/18 18:45) Ct Abd/Pel W/O Iv Contrast (02/15/18 ) Labs Laboratory Tests Test 02/15/18 18:20 White Blood Count 10.0 TH/MM3 Red Blood Count 5.73 MIL/MM3 Hemoglobin 16.4 GM/DL Hematocrit 49.2 % Mean Corpuscular Volume 85.9 FL Mean Corpuscular Hemoglobin 28.7 PG Mean Corpuscular Hemoglobin Concent 33.4 % Red Cell Distribution Width 13.2 % Platelet Count 314 TH/MM3 Mean Platelet Volume 7.7 FL Neutrophils (%) (Auto) 90.2 % Lymphocytes (%) (Auto) 8.1 % Monocytes (%) (Auto) 1.4 % Eosinophils (%) (Auto) 0.0 % Basophils (%) (Auto) 0.3 % Neutrophils # (Auto) 9.0 TH/MM3 Lymphocytes # (Auto) 0.8 TH/MM3 Monocytes # (Auto) 0.1 TH/MM3 Eosinophils # (Auto) 0.0 TH/MM3 Basophils # (Auto) 0.0 TH/MM3 CBC Comment DIFF FINAL Differential Comment MDM Medical Decision Making Medical Screen Exam Complete: Yes Emergency Medical Condition: Yes Medical Record Reviewed: Yes Interpretation(s) Vital Signs Date Time Temp Pulse Resp B/P (MAP) Pulse Ox O2 Delivery O2 Flow Rate FiO2 02/15/18 17:51 97.8 61 20 144/100 (115) 100 Differential Diagnosis ACS versus [place] versus gastroenteritis versus kidney stone versus metabolic abnormality versus other Narrative Course Patient is a thin 42-year-old male presenting to the emergency department for evaluation of GI symptoms and chest pain. Patient is actively vomiting on arrival. IV access established, patient placed on telemetry monitoring continuous pulse oximetry. EKG, labs, chest x-ray ordered and pending. Patient 's family then stated to my attending physician the patient has had several episodes of this pain and vomiting in the past. Patient has been seen at [facility] in the past for same symptoms. CT scan the abdomen and pelvis is ordered and pending. Patient was also seen and evaluated by my attending physician. Initial EKG was reviewed by my attending physician, shows normal sinus rhythm, atrial paced. Chest x-ray shows no acute disease CBC with white blood cell count of 10.0, slight left shift with neutrophils at 90.2% Additional labs are pending as well as a CT scan of the abdomen and pelvis. Care of patient will be transferred to [facility], he will determine patient's disposition along with my attending physician. Kellie Christianson Feb 15, 2018 18:24
[2018-02-15 18:39] VITALS: BP_SYST 145; BP_SYST 151; BP_DIAS 100; BP_DIAS 98; PULSE 59; RESP 15; O2SAT 99
[2018-02-15 18:41] VITALS: BP 145/98; PULSE 60; RESP 15; O2SAT 99
[2018-02-15 18:42] VITALS: BP 145/98; PULSE 60; RESP 15; O2SAT 99
[2018-02-15 18:44] LABS: BASOPHIL % 0.3 % (0.0-2.0); HEMATOCRIT 49.2 % (39.0-51.0); HEMOGLOBIN 16.4 GM/DL (13.0-17.0); LYMPH % 8.1 % (9.0-44.0); LYMPHOCYTE # 0.8 TH/MM3 (1.0-4.8); MEAN CELL VOLUME 85.9 FL (80.0-100.0); MEAN CORPUSCULAR HEMOGLOBIN 28.7 PG (27.0-34.0); MEAN CORPUSCULAR HGB CONC 33.4 % (32.0-36.0); MEAN PLATELET VOLUME 7.7 FL (7.0-11.0); MONO % 1.4 % (0.0-8.0); MONOCYTE # 0.1 TH/MM3 (0-0.9); NEUT % 90.2 % (16.0-70.0); PLATELET COUNT 314 TH/MM3 (150-450); RED BLOOD COUNT 5.73 MIL/MM3 (4.50-5.90); RED CELL DISTRIBUTION WIDTH 13.2 % (11.6-17.2)
--- NOTE | 2018-02-15 18:44 | PD ---
Physical Exam Date Seen by Provider: Feb 15, 2018 Time Seen by Provider: 18:41 Narrative 42-year-old male came to the emergency room with history of epigastric pain and nausea and vomiting that started this morning. Patient appears to be quite miserable but the history is given mostly by his . While I was in the room patient was constantly vomiting and said he is very nauseous and wants something for his nausea. The says all the symptoms started this morning and he has thrown up multiple times. He has had these kind of symptoms many times in the past and was admitted in [facility] at the end of last year for 10 days where GI had seen him and endoscopy was done. He was told that his stomach "cannot digest food properly". He was also admitted in [place] and had GI see him an endoscopy done yet again without any significant diagnosis. Patient does have significant cardiac history where he has been stented 2 years ago and has a pacemaker. When the symptoms started this morning the decided to bring him here to [place]. His night monitor and frame coverer are both from different [place]. His night monitor is from [place] and the frame coverer is from [facility]. However the says that he sees both of them on a regular basis. Patient is being seen by my nurse practitioner and I am supervising her. There has been blood test ordered both for cardiac as well as abdominal complaints. There is a chest x-ray and CT scan of the abdomen and pelvis ordered. I have ordered IV Reglan for his nausea. My suspicion is that patient may have gastroparesis in which case Reglan would be beneficial. Patient may eventually require to be admitted given the way he appears pending test results. Vital signs are relatively stable. Data Data Last Documented VS Vital Signs Date Time Temp Pulse Resp B/P (MAP) Pulse Ox O2 Delivery O2 Flow Rate FiO2 02/16/18 00:55 61 16 118/71 (87) 98 Room Air 02/15/18 17:51 97.8 Orders Orders Electrocardiogram (02/15/18 18:10) Ckmb (Isoenzyme) Profile (02/15/18 18:10) Complete Blood Count With Diff (02/15/18 18:10) Comprehensive Metabolic Panel (02/15/18 18:10) D-Dimer (02/15/18 18:10) Magnesium (Mg) (02/15/18 18:10) Prothrombin Time / Inr (Pt) (02/15/18 18:10) Act Partial Throm Time (Ptt) (02/15/18 18:10) Troponin I (02/15/18 18:10) Lipase (02/15/18 18:10) Chest, Single Ap (02/15/18 18:10) Ecg Monitoring (02/15/18 18:10) Bilateral Bp Monitoring (02/15/18 18:10) Iv Access Insert/Monitor (02/15/18 18:10) Oximetry (02/15/18 18:10) Oxygen Administration (02/15/18 18:10) Sodium Chloride 0.9% Flush (Ns Flush) (02/15/18 18:15) Urinalysis - C+S If Indicated (02/15/18 18:10) Sodium Chlor 0.9% 1000 Ml Inj (Ns 1000 M (02/15/18 18:10) Promethazine Inj (Phenergan Inj) (02/15/18 18:15) Morphine Inj (Morphine Inj) (02/15/18 18:15) Metoclopramide Inj (Reglan Inj) (02/15/18 18:45) Ct Abd/Pel W/O Iv Contrast (02/15/18 ) Sodium Chlor 0.9% 1000 Ml Inj (Ns 1000 M (02/15/18 19:45) Oral Rehydration (02/15/18 19:39) Prochlorperazine Inj (Compazine Inj) (02/15/18 22:30) Morphine Inj (Morphine Inj) (02/15/18 22:30) Sodium Chlor 0.9% 1000 Ml Inj (Ns 1000 M (02/16/18 00:45) Admit Order (Ed Use Only) (02/16/18 00:47) Place In Observation (02/16/18 ) Vital Signs (Adult) Q4H (02/16/18 01:18) Activity Oob With Assistance (02/16/18 01:18) Intake + Output MARILYN.QSHIFT (02/16/18 01:18) Sodium Chlor 0.9% 1000 Ml Inj (Ns 1000 M (02/16/18 01:18) Sodium Chloride 0.9% Flush (Ns Flush) (02/16/18 01:30) Sodium Chloride 0.9% Flush (Ns Flush) (02/16/18 09:00) Naloxone Inj (Narcan Inj) (02/16/18 01:30) Delivery Stock Clerk / Telemetry MARILYN.Q8H (02/16/18 01:18) Prochlorperazine Inj (Compazine Inj) (02/16/18 01:30) Trimethobenzamide Inj (Tigan Inj) (02/16/18 01:30) Labs Laboratory Tests Test 02/15/18 18:20 02/15/18 20:50 02/15/18 23:15 White Blood Count 10.0 TH/MM3 Red Blood Count 5.73 MIL/MM3 Hemoglobin 16.4 GM/DL Hematocrit 49.2 % Mean Corpuscular Volume 85.9 FL Mean Corpuscular Hemoglobin 28.7 PG Mean Corpuscular Hemoglobin Concent 33.4 % Red Cell Distribution Width 13.2 % Platelet Count 314 TH/MM3 Mean Platelet Volume 7.7 FL Neutrophils (%) (Auto) 90.2 % Lymphocytes (%) (Auto) 8.1 % Monocytes (%) (Auto) 1.4 % Eosinophils (%) (Auto) 0.0 % Basophils (%) (Auto) 0.3 % Neutrophils # (Auto) 9.0 TH/MM3 Lymphocytes # (Auto) 0.8 TH/MM3 Monocytes # (Auto) 0.1 TH/MM3 Eosinophils # (Auto) 0.0 TH/MM3 Basophils # (Auto) 0.0 TH/MM3 CBC Comment DIFF FINAL Differential Comment Prothrombin Time 10.5 SEC Prothromb Time International Ratio 1.0 RATIO Activated Partial Thromboplast Time 23.1 SEC D-Dimer Quantitative (PE/DVT) 0.26 MG/L FEU Urine Color YELLOW Urine Turbidity CLEAR Urine pH 8.0 Urine Specific [place] 1.035 Urine Protein 100 mg/dL Urine Glucose (UA) NEG mg/dL Urine Ketones 150 mg/dL Urine Occult Blood NEG Urine Nitrite NEG Urine Bilirubin NEG Urine Urobilinogen 2.0 MG/DL Urine Leukocyte Esterase NEG Urine RBC 4 /hpf Urine WBC 1 /hpf Urine Squamous Epithelial Cells <1 /hpf Urine Mucus FEW /lpf Microscopic Urinalysis Comment CULT NOT INDICATED Urine Opiates Screen POS Urine Barbiturates Screen NEG Urine Amphetamines Screen NEG Urine Benzodiazepines Screen NEG Urine Cocaine Screen NEG Urine Cannabinoids Screen POS Blood Urea Nitrogen 13 MG/DL Creatinine 0.82 MG/DL Random Glucose 105 MG/DL Total Protein 7.2 GM/DL Albumin 4.0 GM/DL Calcium Level 8.4 MG/DL Magnesium Level 1.9 MG/DL Alkaline Phosphatase 83 U/L Aspartate Amino Transf (AST/SGOT) 15 U/L Alanine Aminotransferase (ALT/SGPT) 28 U/L Total Bilirubin 0.4 MG/DL Sodium Level 142 MEQ/L Potassium Level 4.0 MEQ/L Chloride Level 106 MEQ/L Carbon Dioxide Level 22.1 MEQ/L Anion Gap 14 MEQ/L Estimat Glomerular Filtration Rate 103 ML/MIN Total Creatine Kinase 54 U/L Troponin I LESS THAN 0.02 NG/ML Lipase 61 U/L [facility] Supervised Visit with HAILEY: Yes Interpretation(s) Twelve-lead EKG was reviewed by me. Normal sinus rhythm, atrial paced, normal axis, nonspecific ST-T wave changes. Heart rate of 75 bpm. Narrative Course 12:31 AM all the test results are back and within acceptable limits. UA suggestive of ketonuria and dehydration. CT scan is within normal limits. Patient continues to be extremely nauseous. He is received multiple doses of antiemetics. I just went back to speak with the patient and his family and informed them about the test results. Patient said he wanted something more for nausea again since all these medications just last for little bit and then the nausea comes back. I have ordered 1/3 L of IV fluid bolus at this point. I would like to admit the patient for intractable vomiting and dehydration. Diagnosis Primary Impression: Intractable vomiting Qualified Codes: R11.2 - Nausea with vomiting, unspecified Additional Impressions: Dehydration Ketonemia Admitting Information Admitting Physician Requests: Observation Nicolás Purdy MD Feb 15, 2018 18:44
[2018-02-15] MEDS ORDERED: METOCLOPRAMIDE HCL 10 MG/2 ML VIAL IV PUSH ONE (18:45)
--- NOTE | 2018-02-15 18:49 | RADRPT ---
EXAM DATE: 02/15/2018 6:46 PM EDT AGE/SEX: 42 years / Male INDICATIONS: Short of breath. CLINICAL DATA: This is the patient's initial encounter. Patient reports that signs and symptoms have been present for 1 day and indicates a pain score of 3/10. MEDICAL/SURGICAL HISTORY: Cardiovascular disease. Pacemaker. COMPARISON: [facility], CHEST SINGLE AP, 07/17/2017. . FINDINGS: A pacing implement is present with control pack over the right upper chest. The lungs are focally mikey ar. No pleural effusion evident. Cardiomediastinal contours are stable and satisfactory. CONCLUSION: No acute disease Electronically signed by: Star Ahmadi MD 02/15/2018 6:47 PM EDT
[2018-02-15 18:58] LABS: PROTHROMBIN TIME - PATIENT 10.5 SEC (9.8-11.6)
[2018-02-15 19:01] LABS: D-DIMER 0.26 MG/L FEU (0.00-0.50)
--- NOTE | 2018-02-15 19:33 | RADRPT ---
EXAM DATE: 02/15/2018 7:26 PM EDT AGE/SEX: 42 years / Male INDICATIONS: Abdominal pain, nausea, vomiting. CLINICAL DATA: This is the patient's initial encounter. Patient reports that signs and symptoms have been present for 1 day and indicates a pain score of 9/10. MEDICAL/SURGICAL HISTORY: Cardiovascular disease. Pacemaker. RADIATION DOSE: 4.92 CTDI (mGy) COMPARISON: No prior exams available for comparison. TECHNIQUE: Multiple contiguous axial images were obtained through the abdomen. Images were obtained using multiple row detector helical technique. Using dose reduction techniques, radiation dose was ke pt as low as reasonably achievable to obtain optimal diagnostic quality images. FINDINGS: Lower Lungs: The visualized lower lungs are clear. Liver: The liver has a homogeneous density without space-occupying lesion. There is no dilation of th e biliary tree. Spleen: Homogeneous density without enlargement. Pancreas: Unremarkable without mass or calcification. Kidneys: Normal in size and shape. No evidence of mass or hydronephrosis. Adrenal Glands: Unremarkable. Aorta: The aorta and proximal iliac vessels are grossly unremarkable without aneurysmal dilation. Bowel/Mesentery: The bowel loops are grossly unremarkable. The cecum and sigmoid colon have a normal configuration. Abdominal Wall: Intact. Retroperitoneum: No evidence of adenopathy in the retrocrural, para-aortic, or deep pelvic regions. Bladder: Contents appear hyperdense. Unless the patient has had exposure to excrete of contrast agen ts, this would be concerning for presence of blood or other debris in the urine Reproductive Organs: No abnormal masses or calcifications seen. Inguinal: The inguinal region is unremarkable without evidence of adenopathy. Bony Structures: Unremarkable. CONCLUSION: 1. Mildly hyperdense bladder contents. Correlate with possibility of hematuria or pyuria Electronically signed by: Star Ahmadi MD 02/15/2018 7:31 PM EDT
[2018-02-15 21:20] LABS: BILIRUBIN, URINE NEG (NEG); BLOOD, URINE NEG (NEG); GLUCOSE,URINE NEG (NEG); KETONE, URINE 150 mg/dL (NEG); MUCUS URINE FEW /lpf (OCC); NITRITE,URINE NEG (NEG); SQUAMOUS EPITHELIAL CELL URINE <1 /hpf (0-5); URINE COLOR YELLOW (YELLW/STRAW); URINE LEUKOCYTE ESTERASE NEG (NEG)
[2018-02-15] MEDS ORDERED: PROCHLORPERAZINE INJ 10 MG/2 ML VIAL IV PUSH ONE (22:30)
[2018-02-15 23:58] LABS: AST (GOT) 15 U/L (15-37); BICARBONATE 22.1 MEQ/L (21.0-32.0); BLOOD UREA NITROGEN 13 MG/DL (7-18); CALCIUM 8.4 MG/DL (8.5-10.1); CHLORIDE 106 MEQ/L (98-107); CREATININE 0.82 MG/DL (0.60-1.30); GLOMERULAR FILTRATION RATE 103 ML/MIN (>89); GLUCOSE,RANDOM 105 MG/DL (74-106); MAGNESIUM 1.9 MG/DL (1.5-2.5); SODIUM (NA) 142 MEQ/L (136-145)
[2018-02-16] VITALS (7 sets, daily range): BP systolic 104–149; BP diastolic 58–81; PULSE 60–91; RESP 15–19; TEMP 98.2–98.5; O2SAT 98–99
[2018-02-16 00:03] LABS: ALKALINE PHOSPHATASE 83 U/L (45-117); TOTAL BILIRUBIN ADULT 0.4 MG/DL (0.2-1.0); TOTAL PROTEIN 7.2 GM/DL (6.4-8.2); TROPONIN I LESS THAN 0.02 NG/ML (0.02-0.05)
[2018-02-16 00:11] LABS: ALT (GPT) 28 U/L (12-78)
[2018-02-16] MEDS ORDERED: SODIUM CHLOR 0.9% 1000 ML INJ 1,000 ML IV ONE (00:45)
[2018-02-16] MEDS ORDERED: TRIMETHOBENZAMIDE INJ 200 MG/2 ML VIAL IM PRN (01:30)
[2018-02-16] MEDS ORDERED: PROCHLORPERAZINE INJ 10 MG/2 ML VIAL IV PUSH PRN (01:30)
[2018-02-16] MEDS ORDERED: NALOXONE HCL 0.4 MG/ML AMP IV PUSH PRN (01:30)
[2018-02-16] MEDS ORDERED: SODIUM CHLORIDE 0.9% FLUSH 10 ML FLUSH IV FLUSH PRN (01:30)
[2018-02-16] MEDS: SODIUM CHLOR 0.9% 1000 ML INJ 1,000 ML IV SCH ×2 (02:40→11:14)
--- NOTE | 2018-02-16 03:41 | HHI.HP ---
HPI Service [facility] Primary Care Physician Unknown Admission Diagnosis Intractable vomiting, ketonuria, dehydration Diagnoses: Travel History International Travel<30 Days: No Contact w/Intl Traveler <30 Da: No Traveled to Known Affected Are: No History of Present Illness 42-year-old male with past medical history significant for CHF, chronic neck/ back pain, CAD, hypertension and hyperlipidemia presents the emergency department for evaluation of nausea and vomiting 2 days. The patient reports he has not felt well for 2 days and endorses an abdominal pain that feels as if "someone is punching him in the stomach." He denies any associated diarrhea. He reports multiple episodes of emesis that began earlier yesterday. He also endorses a substernal chest pain that he states is worse with his emesis. He denies any shortness of breath or heart palpitations. No fevers/chills. No lateralizing signs/symptoms. Review of Systems Except as stated in HPI: all other systems reviewed are Neg Past Family Social History Past Medical History CHF, chronic neck/back pain, CAD, hypertension and hyperlipidemia Past Surgical History Pacemaker placement Left knee surgery 2 Reported Medications Reported Meds & Active Scripts Active Metoprolol Tartrate 25 Mg Tab 12.5 Mg PO Q12HR 30 Days Aspirin 81 Mg Chew 162 Mg CHEW DAILY Pravastatin 40 Mg Tab 40 Mg PO DAILY 30 Days Reported Gabapentin 100 Mg Cap 100 Mg PO TID Gabapentin 800 Mg Tab 800 Mg PO TID Soma (Carisoprodol) 350 Mg Tab 350 Mg PO BID Omeprazole 20 Mg Cap 1 Tab PO BID Oxycodone (Oxycodone HCl) 15 Mg Tab 15 Mg PO Q4H PRN Allergies: Coded Allergies: No Known Allergies (Unverified Allergy, Unknown, 02/15/18) Family History Mother with CAD Social History Smokes approximately half pack per day. Denies alcohol. Positive marijuana ( last use approximately 3 weeks ago). Denies all other illicit drugs. Physical Exam Vital Signs Vital Signs Date Time Temp Pulse Resp B/P (MAP) Pulse Ox O2 Delivery O2 Flow Rate FiO2 02/16/18 02:41 60 16 104/58 (73) 98 Room Air 02/16/18 00:55 61 16 118/71 (87) 98 Room Air 02/15/18 18:42 60 15 145/98 (114) 99 Room Air 02/15/18 18:42 60 15 99 Room Air 02/15/18 18:41 60 15 145/98 (114) 99 Room Air 02/15/18 18:41 99 Room Air 02/15/18 18:39 59 15 151/100 (117) 99 Room Air 145/98 (114) 02/15/18 17:51 97.8 61 20 144/100 (115) 100 Physical Exam GENERAL: male lying in bed SKIN: No rashes, ecchymoses or lesions. Cool and dry. HEAD: Atraumatic. Normocephalic. No temporal or scalp tenderness. EYES: Pupils equal round and reactive. Extraocular motions intact. No scleral icterus. No injection or drainage. ENT: Nose without bleeding, purulent drainage or septal hematoma. Throat without erythema, tonsillar hypertrophy or exudate. Uvula midline. Airway patent. NECK: Trachea midline. No JVD or lymphadenopathy. Supple, nontender, no meningeal signs. CARDIOVASCULAR: Regular rate and rhythm without murmurs, gallops, or rubs. RESPIRATORY: Clear to auscultation. Breath sounds equal bilaterally. No wheezes , rales, or rhonchi. GASTROINTESTINAL: Abdomen soft, diffusely tender to palpation, nondistended. No hepato-splenomegaly, or palpable masses. No guarding. MUSCULOSKELETAL: Extremities without clubbing, cyanosis, or edema. No joint tenderness, effusion, or edema noted. No calf tenderness. NEUROLOGICAL: Awake and alert. Cranial nerves II through XII intact. Motor and sensory grossly within normal limits. Normal speech. Laboratory Laboratory Tests Test 02/15/18 18:20 02/15/18 20:50 02/15/18 23:15 White Blood Count 10.0 Red Blood Count 5.73 Hemoglobin 16.4 Hematocrit 49.2 Mean Corpuscular Volume 85.9 Mean Corpuscular Hemoglobin 28.7 Mean Corpuscular Hemoglobin Concent 33.4 Red Cell Distribution Width 13.2 Platelet Count 314 Mean Platelet Volume 7.7 Neutrophils (%) (Auto) 90.2 Lymphocytes (%) (Auto) 8.1 Monocytes (%) (Auto) 1.4 Eosinophils (%) (Auto) 0.0 Basophils (%) (Auto) 0.3 Neutrophils # (Auto) 9.0 Lymphocytes # (Auto) 0.8 Monocytes # (Auto) 0.1 Eosinophils # (Auto) 0.0 Basophils # (Auto) 0.0 CBC Comment DIFF FINAL Differential Comment Prothrombin Time 10.5 Prothromb Time International Ratio 1.0 Activated Partial Thromboplast Time 23.1 D-Dimer Quantitative (PE/DVT) 0.26 Urine Color YELLOW Urine Turbidity CLEAR Urine pH 8.0 Urine Specific [place] 1.035 Urine Protein 100 Urine Glucose (UA) NEG Urine Ketones 150 Urine Occult Blood NEG Urine Nitrite NEG Urine Bilirubin NEG Urine Urobilinogen 2.0 Urine Leukocyte Esterase NEG Urine RBC 4 Urine WBC 1 Urine Squamous Epithelial Cells <1 Urine Mucus FEW Microscopic Urinalysis Comment CULT NOT INDICATED Blood Urea Nitrogen 13 Creatinine 0.82 Random Glucose 105 Total Protein 7.2 Albumin 4.0 Calcium Level 8.4 Magnesium Level 1.9 Alkaline Phosphatase 83 Aspartate Amino Transf (AST/SGOT) 15 Alanine Aminotransferase (ALT/SGPT) 28 Total Bilirubin 0.4 Sodium Level 142 Potassium Level 4.0 Chloride Level 106 Carbon Dioxide Level 22.1 Anion Gap 14 Estimat Glomerular Filtration Rate 103 Total Creatine Kinase 54 Troponin I LESS THAN 0.02 Lipase 61 Result Diagram: 02/15/18 1820 02/15/18 2311 Caprini VTE Risk Assessment Caprini VTE Risk Assessment: No/Low Risk (score <= 1) Caprini Risk Assessment Model Point Value = 1 Point Value = 2 Point Value = 3 Point Value = 5 Age 41-60 Minor surgery BMI > 25 kg/m2 Swollen legs Varicose veins or History of unexplained or recurrent spontaneous Oral contraceptives or hormone replacement Sepsis (< 1 month) Serious lung disease, including pneumonia (< 1 month) Abnormal pulmonary function Acute myocardial infarction Congestive heart failure (< 1 month) History of inflammatory bowel disease Medical patient at bed rest Age 61-74 Arthroscopic surgery Major open surgery (> 45 min) Laparoscopic surgery (> 45 min) Malignancy Confined to bed (> 72 hours) Immobilizing plaster cast Central venous access Age >= 75 History of VTE Family history of VTE Factor V Leiden Prothrombin [id number] Lupus anticoagulant Anticardiolipin antibodies Elevated serum homocysteine Heparin-induced thrombocytopenia Other congenital or acquired thrombophilia Stroke (< 1 month) Elective arthroplasty Hip, pelvis, or leg fracture Acute spinal cord injury (< 1 month) Prophylaxis Regimen Total Risk Factor Score Risk Level Prophylaxis Regimen 0-1 Low Early ambulation 2 Moderate Order ONE of the following: *Sequential Compression Device (SCD) *Heparin 5000 units SQ BID 3-4 Higher Order ONE of the following medications: *Heparin 5000 units SQ TID *Enoxaparin/Lovenox 40 mg SQ daily (WT < 150 kg, CrCl > 30 mL/min) *Enoxaparin/Lovenox 30 mg SQ daily (WT < 150 kg, CrCl > 10-29 mL/min) *Enoxaparin/Lovenox 30 mg SQ BID (WT < 150 kg, CrCl > 30 mL/min) AND/OR *Sequential Compression Device (SCD) 5 or more Highest Order ONE of the following medications: *Heparin 5000 units SQ TID (Preferred with Epidurals) *Enoxaparin/Lovenox 40 mg SQ daily (WT < 150 kg, CrCl > 30 mL/min) *Enoxaparin/Lovenox 30 mg SQ daily (WT < 150 kg, CrCl > 10-29 mL/min) *Enoxaparin/Lovenox 30 mg SQ BID (WT < 150 kg, CrCl > 30 mL/min) AND *Sequential Compression Device (SCD) Assessment and Plan Assessment and Plan Assessment/plan: 1. Intractable nausea/vomiting Patient reports several hospitalizations for the same issues without any diagnosis -status post multiple EGDs which were within normal limits according to the patient Compazine Clear liquid diet 2. Chest pain EKG shows atrial pacing, without ST segment elevations or depressions, personally reviewed Initial troponin negative ACS rule out pending; serial troponins/EKGs 3. Hypertension/hyperlipidemia/CHF Continue home medication 4. Chronic neck/back pain Holding home oxycodone as may be contributing to patient's intractable nausea/ vomiting FEN Clear liquid diet Electrolytes: Monitor and replete as needed NS at 100 cc/hour Susan Perez MD Feb 16, 2018 03:41
[2018-02-16] MEDS ORDERED: SODIUM CHLORIDE 0.9% FLUSH 10 ML FLUSH IV FLUSH SCH (09:00)
[2018-02-16] MEDS ORDERED: ASPIRIN 81 MG CHEW TAB CHEW SCH (09:00)
[2018-02-16] MEDS ORDERED: PRAVASTATIN SOD 40 MG TAB PO SCH (09:00)
[2018-02-16] MEDS ORDERED: METOPROLOL TARTRATE 25 MG TAB PO SCH (09:00)
[2018-02-16] MEDS ORDERED: PANTOPRAZOLE SOD 20 MG DELAYED RELEASE TAB PO SCH (09:00)
[2018-02-16] MEDS ORDERED: ONDANSETRON ODT 4 MG TAB PO ONE (10:45)
[2018-02-16 11:46] LABS: TROPONIN I LESS THAN 0.02 NG/ML (0.02-0.05)
[2018-02-16 12:43] LABS: TROPONIN I LESS THAN 0.02 NG/ML (0.02-0.05)
--- NOTE | 2018-02-16 15:38 | EKG ---
Date Performed: 02/16/2018 Time Performed: 12:21:20 PTAGE: 42 years EKG: ELECTRONIC ATRIAL PACEMAKER ABNORMAL RHYTHM ECG PREVIOUS TRACING : 02/15/2018 18.03 No significant change from previous tracing noted. DOCTOR: Farooq Chiang Interpretating Date/Time 02/16/2018 15:36:53
--- NOTE | 2018-02-16 18:47 | EKG ---
Date Performed: 02/15/2018 Time Performed: 18:03:46 PTAGE: 42 years EKG: ELECTRONIC ATRIAL PACEMAKER ABNORMAL RHYTHM ECG Since the PREVIOUS TRACING , no significant change noted PREVIOUS TRACING;07/17/2017 @23.11 DOCTOR: Su Schwartz Interpretating Date/Time 02/16/2018 18:45:58
== END 2018-02-16 16:39 | disposition left against medical advice (07) ==
LOC: NEPD 17:48 → NEDA 02-16 00:48 → UNDOADMIN 02-16 00:48 → NEDA 02-16 01:21 → INTOOBSV 02-16 01:21 → NEPGCP 02-16 04:12
PROVIDERS: ADMIT Internal Medicine; ATTEND Internal Medicine
DX: R11.2 Nausea with vomiting, unspecified (principal); R07.89 Other chest pain; E86.0 Dehydration; E78.5 Hyperlipidemia, unspecified; I25.10 Atherosclerotic heart disease of native coronary artery without angina pectoris; I11.0 Hypertensive heart disease with heart failure; M54.9 Dorsalgia, unspecified; I50.9 Heart failure, unspecified; F17.210 Nicotine dependence, cigarettes, uncomplicated; F12.90 Cannabis use, unspecified, uncomplicated; I25.2 Old myocardial infarction; E78.00 Pure hypercholesterolemia, unspecified; Z79.82 Long term (current) use of aspirin; Z95.0 Presence of cardiac pacemaker; Z86.73 Personal history of transient ischemic attack (TIA), and cerebral infarction without residual deficits; Z87.442 Personal history of urinary calculi; Z82.49 Family history of ischemic heart disease and other diseases of the circulatory system
CPT/HCPCS: 71045; 74176; 80053; 80307; 81001; 82550; 83690; 83735; 84484; 85025; 85379; 85610; 85730; 93005; 96361; 96374; 96375; 96376; 99285; G0378; J0780; J2270; J2765; J7030